=== PATIENT | male | born 1945 | race Caucasian/White ===

== ENCOUNTER 2022-02-27 17:51 | Emergency (ER) | payer OTHER ==
[~2022-02-27] VITALS: Ht 172.7 cm; Wt 63.5 kg
[2022-02-27] MEDS ORDERED: IV NS 0.9% 1,000 ML BAG IV ONE (18:30)
[2022-02-27] MEDS ORDERED: ACETAMINOPHEN ES 500 MG TABLET PO ONE (18:30)
[2022-02-27 18:56] LABS: CALCIUM, SERUM 8.3 mg/dL (8.5-10.1); CARBON DIOXIDE 23 mmol/L (21-32); CHLORIDE 99 mmol/L (98-107); CREATININE 1.4 mg/dL (0.6-1.3); GLUCOSE 152 mg/dL (74-106); SODIUM SERUM 133 mmol/L (136-145); UREA NITROGEN, BLOOD 25 mg/dL (7-18)
[2022-02-27 19:00] LABS: POTASSIUM 2.8 mmol/L (3.5-5.1)
--- NOTE | 2022-02-27 19:05 | NUR ---
@ 1817 BIB [facility] 72 FROM HOME,FEVER X 4 DAYS,DENIES OTHER SX. PT A/OX3 WITH FORGETFULNESS. TOLERATING R/A WELL WITH NO RESP DISTRESS. PT AMBULATORY WITH UNSTEADY GAIT. CONNECTED PT TO POX AND MONITOR. SAFETY MEASURES IN PLACE.
[2022-02-27 19:10] LABS: ALKALINE PHOSPHATASE 58 U/L (46-116); BILIRUBIN,DIRECT 0.3 mg/dL (0.0-0.2); BILIRUBIN,TOTAL 1.2 mg/dL (0.2-1.0)
[2022-02-27 19:11] LABS: ALANINE AMINOTRANSFERASE 15 U/L (12-78); ALBUMIN 3.4 g/dL (3.4-5.0); ASPARTATE AMINOTRANSFERASE 15 U/L (15-37); TOTAL PROTEIN, SERUM 7.2 g/dL (6.4-8.2)
[2022-02-27] MEDS ORDERED: ACETAMINOPHEN ES 500 MG TABLET ONE ×2 (19:13→19:14)
--- NOTE | 2022-02-27 19:21 | NUR ---
COVID TEST COLLECTED AND SENT
[2022-02-27] MEDS ORDERED: CEFTRIAXONE 1GM BAG (ER ONLY) 50 ML IV ONE ×2 (19:30→19:31)
[2022-02-27] MEDS ORDERED: POTASSIUM CL. PREMIX PERIPHER. 100 ML ONE (19:31)
[2022-02-27 19:41] LABS: HEMATOCRIT 36 % (39-51); HEMOGLOBIN 12.4 g/dL (13.5-17.5); LYMPHOCYTES # (AUTO) 0.6 K/uL (0.8-4.8); LYMPHOCYTES % (AUTO) 7.3 % (20.0-44.0); MEAN CORPUSCULAR HGB CONC 35 g/dl (31.0-36.0); MEAN CORPUSCULAR VOLUME 88 fL (80-96); MONOCYTES # (AUTO) 0.5 K/uL (0.1-1.30); MONOCYTES % (AUTO) 6.8 % (2.0-12.0); NEUTROPHILS # (AUTO) 6.6 K/uL (1.8-8.9); NEUTROPHILS % (AUTO) 85.9 % (43.0-81.0); PLATELET COUNT (AUTO) 115 K/uL (150-450); RED BLOOD CELL COUNT(AUTO) 4.09 MIL/uL (4.5-6.0); WHITE BLOOD COUNT (AUTO) 7.7 K/uL (4.3-11.0)
[2022-02-27] MEDS: POTASSIUM CL. PREMIX PERIPHER. 50 ML IV SCH ×2 (19:55→20:54)
--- NOTE | 2022-02-27 19:56 | NUR ---
URINE COLLECTED AND SENT TO LAB
[2022-02-27 20:22] LABS: BILIRUBIN,URINE NEGATIVE (NEGATIVE); COLOR,URINE YELLOW (YELLOW); LEUKOCYTE ESTERASE ,URINE NEGATIVE (NEGATIVE); NITRITE, URINE NEGATIVE (NEGATIVE); PROTEIN,URINE 30 mg/dl (NEGATIVE); UGLUCOSE NEGATIVE (NEGATIVE); UROBILINOGEN,URINE 0.2 EU/dL (0.2)
--- NOTE | 2022-02-27 21:12 | NUR ---
BENITA (FRIEND) WILL [employer] PT FOR DC ETA 15 MINS
--- NOTE | 2022-02-27 21:28 | NUR ---
Patient discharged to home in stable condition. Written and verbal after care instructions given. Patient verbalizes understanding of instruction. Patient was picked up by a friend
[2022-02-27 21:30] VITALS: BP 116/60
== END 2022-02-27 21:31 | disposition home or self-care (01) ==
LOC: ER 17:53
DX: R50.9 Fever, unspecified (principal); E87.6 Hypokalemia; Z20.822 Contact with and (suspected) exposure to COVID-19; J98.11 Atelectasis
CPT/HCPCS: 99285; 96365; 71045; 96367; 96366; 87426; 93005; 84145; 85025; 80048; 87040 ×2; 87086; 83605; 80076; 81003; 36415; 84484; 85730; J7030; J3480; J0696; C9803